=== PATIENT | male | born 1985 | race Caucasian/White ===

== ENCOUNTER → 2023-07-04 | Day surgery (SDC) | payer BC ==
[~2023-07-04] MED LIST: LIDOCAINE 1% (10MG/ML) FOR IV START INTRADERMA PRN; LIDOCAINE 2% (PF) 20 MG/ML 5 ML VIAL ONE; PROPOFOL 10 MG/ML 20 ML VIAL IV ONE; fentaNYL (PF) 50 MCG/ML 2 ML AMP ONE
--- NOTE | 2023-07-04 07:36 | P.GSHP ---
History of Present Illness H&P Date: 07/04/23 CHIEF COMPLAINT: GERD and colon screen HISTORY OF PRESENT ILLNESS: The patient is a 38-year-old male who presents with gastroesophageal reflux disease and need for colon screen. Upper and lower endoscopy were offered for further evaluation and management. PAST MEDICAL HISTORY: Please see list. PAST SURGICAL HISTORY: Please see list. MEDICATIONS: Please see list. ALLERGIES: Please see list. SOCIAL HISTORY: No illicit drug use FAMILY HISTORY: No reports of Crohn disease or ulcerative colitis. REVIEW OF ORGAN SYSTEMS: CONSTITUTIONAL: No reports of fevers or chills. GI: Denies any blood in stools or constipation. PHYSICAL EXAM: VITAL SIGNS: Stable GENERAL: Well-developed pleasant in no acute distress. HEENT: No scleral icterus. Extraocular movements grossly intact. Moist buccal mucosa. NECK: Supple without lymphadenopathy. CHEST: Unlabored respirations. Equal bilateral excursions. CARDIOVASCULAR: Regular rate and rhythm. Distal 2+ pulses. ABDOMEN: Soft, nondistended. MUSCULOSKELETAL: No clubbing, cyanosis, or edema. ASSESSMENT: 1. Gastroesophageal reflux disease 2. Colon screen. PLAN: 1. Recommend proceeding with an upper and lower endoscopy Past Medical History Past Medical History: GERD/Reflux, Hypertension Additional Past Medical History / Comment(s): ulceratative colitis History of Any Multi-Drug Resistant Organisms: None Reported Past Surgical History: Cholecystectomy Additional Past Surgical History / Comment(s): EGD/colonoscopy Past Anesthesia/Blood Transfusion Reactions: No Reported Reaction Smoking Status: Former smoker - Past Family History Brother(s) Family Medical History: Diabetes Mellitus Medications and Allergies Home Medications Medication Instructions Recorded Confirmed Type ALPRAZolam [Xanax] 0.5 mg PO BID PRN 07/02/23 07/02/23 History Bisoprolol-Hctz 5-6.25 mg [Ziac 1 tab PO QAM 07/02/23 07/02/23 History 5-6.25 MG] traMADol HCL 1 tab PO Q6H PRN 07/02/23 07/02/23 History Allergies Allergy/AdvReac Type Severity Reaction Status Date / Time shellfish derived Allergy Anaphylaxis Verified 07/02/23 09:32 venom-honey bee Allergy Rash/Hives Verified 07/02/23 09:32 [bee venom (honey bee)]
[2023-07-04] MEDS: LACTATED RINGERS 1,000 ML IV SCH (09:19)
[2023-07-04 09:28] VITALS: TEMP 98.9
--- NOTE | 2023-07-04 10:23 | P.PCN ---
Date of Procedure: 07/04/23 Description of Procedure: PREOPERATIVE DIAGNOSIS: Ulcerative colitis Gastrointestinal bleeding POSTOPERATIVE DIAGNOSIS: Proctitis Ulcerative colitis OPERATION: Colonoscopy to the ileocecal valve and appendiceal orifice, cecum Colonoscopy with cold forceps biopsy SURGEON: Jing Hopson MD. ANESTHESIA: MAC. INDICATIONS: The patient is an 38-year-old male who with gastrointestinal bleeding and history of ulcerative colitis. Reports recent bleeding. Benefits and risks were described and informed consent was obtained. DESCRIPTION OF PROCEDURE: The patient had undergone a GoLYTELY prep. The patient had been brought into the operating room and laid in the left lateral decubitus position. After adequate intravenous sedation, the rectum was examined with 2% lidocaine jelly. The prostate was unremarkable. No external hemorrhoids were encountered. The rectal tone was within normal limits. No lesions were palpated in the rectal vault. An Olympus colonoscope was advanced until the cecum, ileocecal valve and appendiceal orifice were clearly viewed. The prep was good. No sigmoid diver ticulosis was encountered. Colonic polyps were found and removed. Focal colitis was found involving the rectum. Retroflexion of the scope demonstrated grade 1 internal hemorrhoids without active bleeding or inflammation. The colon was desufflated. The patient had tolerated the procedure well. Withdrawal time was over 6 minutes. FINDINGS: Aronchick preparation quality scale 2 (1-5) Internal hemorrhoids, grade 1 No external hemorrhoids No arteriovenous malformations. No sigmoid diverticulosis Proctitis with biopsies obtained, cold forceps Random biopsies obtained for ulcerative colitis RECOMMENDATIONS: Repeat colonoscopy 2 years 2023 Plan - Discharge Summary Discharge Rx Participant: Yes New Discharge Prescriptions: New metroNIDAZOLE [Flagyl] 500 mg PO TID #30 tab Continue Bisoprolol-Hctz 5-6.25 mg [Ziac 5-6.25 MG] 1 tab PO QAM ALPRAZolam [Xanax] 0.5 mg PO BID PRN PRN Reason: Anxiety traMADol HCL 1 tab PO Q6H PRN PRN Reason: Pain Discharge Medication List ALPRAZolam [Xanax] 0.5 mg PO BID PRN 07/02/23 [History] Bisoprolol-Hctz 5-6.25 mg [Ziac 5-6.25 MG] 1 tab PO QAM 07/02/23 [History] traMADol HCL 1 tab PO Q6H PRN 07/02/23 [History] metroNIDAZOLE [Flagyl] 500 mg PO TID #30 tab 07/04/23 [Rx] Follow up Appointment(s)/Referral(s): Jing Hopson MD [STAFF PHYSICIAN] - 08/13/23 4:00 pm Patient Instructions/Handouts: Proctitis (DC), GERD (Gastroesophageal Reflux Disease) (ED) Activity/Diet/Wound Care/Special Instructions: Repeat colonoscopy 2 years, 2023 Discharge Disposition: HOME SELF-CARE
--- NOTE | 2023-07-04 10:25 | P.PCN ---
Date of Procedure: 07/04/23 Description of Procedure: PREOPERATIVE DIAGNOSIS: Gastrointestinal bleeding POSTOPERATIVE DIAGNOSIS: Gastroesophageal reflux disease. Gastritis. OPERATION: Esophagogastroduodenoscopy with biopsies along the esophagus in antrum and duodenum SURGEON: Jing Hopson MD ANESTHESIA: MAC. INDICATIONS: The patient is a 38-year-old male who presents with gastrointestinal bleed. Benefits and risks of the procedure were described. Informed consent was obtained. DESCRIPTION: The patient was brought into the endoscopy suite and laid in the left lateral decubitus position. An Olympus gastroscope was passed along the posterior oropharynx down to the distal esophagus where the squamocolumnar junction was encountered at 41 cm from the incisors. The stomach was entered and no bile reflux was found. Additional findings are listed below. Biopsies with cold forceps were obtained of the antrum. The first through third portion of the duodenum was examined. Retroflexion of the scope confirmed Hill grade 1 lower esophageal valve. The squamocolumnar junction demonstrated LA grade B erosive esophagitis. The stomach was desufflated. The patient tolerated the procedure well. FINDINGS: Squamocolumnar junction 41cm from the incisors. Diaphragmatic hiatus at 41 cm. Hill grade 1 lower esophageal valve. LA grade B erosive esophagitis. Biopsies obtained Biopsies obtained of the duodenum. Chronic gastritis with biopsies obtained. RECOMMENDATIONS: Upper endoscopy as needed.
[2023-07-04 10:31] VITALS: PULSE 72; RESP 18
[2023-07-04 11:01] VITALS: BP 124/77
== END | disposition home or self-care (01) ==
LOC: ORWHC2ENDO 08:54
PROVIDERS: ATTEND Surgery Plastic and Reconstructive Surgery
DX: K29.50 Unspecified chronic gastritis without bleeding (principal); K21.00 Gastro-esophageal reflux disease with esophagitis, without bleeding; I10 Essential (primary) hypertension; K62.89 Other specified diseases of anus and rectum; F41.9 Anxiety disorder, unspecified; Z87.891 Personal history of nicotine dependence; Z90.49 Acquired absence of other specified parts of digestive tract; Z91.030 Bee allergy status; Z88.2 Allergy status to sulfonamides; Z79.899 Other long term (current) drug therapy
CPT/HCPCS: 88305; 45380; 43239; J3010; J2704; J2001

== ENCOUNTER 2024-03-31 08:26 | Inpatient (IN) | payer BC ==
--- NOTE | 2024-03-31 08:49 | ED ---
General Adult HPI - General Chief complaint: GI Bleed Stated complaint: blood in stool/dehydrated Time Seen by Provider: 03/31/24 08:35 Source: patient, family, RN notes reviewed Mode of arrival: ambulatory Limitations: no limitations - History of Present Illness Initial comments: Patient is a 39-year-old male presenting to the emergency department with concerns with dehydration. Patient has history of ulcerative colitis. Patient has been having increased symptoms for months, especially worse the past week. Patient started Flagyl however does not feel this is helping and may be making things worse. Patient has decreased oral intake secondary to no appetite. Also decrease fluid intake. Patient is having diarrhea up to 15 times a day, someti mes with blood. Patient has some abdominal discomfort. Patient feels generally weak and dehydrated. No vomiting. Patient has had weight loss. - Related Data Home Medications Medication Instructions Recorded Confirmed ALPRAZolam [Xanax] 0.5 mg PO BID 07/02/23 03/31/24 Bisoprolol-Hctz 5-6.25 mg [Ziac 1 tab PO DAILY 07/02/23 03/31/24 5-6.25 MG] Sertraline [Zoloft] 50 mg PO DAILY 03/31/24 03/31/24 Previous Rx's Medication Instructions Recorded metroNIDAZOLE [Flagyl] 500 mg PO TID #30 tab 07/04/23 Allergies Allergy/AdvReac Type Severity Reaction Status Date / Time shellfish derived Allergy Anaphylaxis Verified 03/31/24 09:52 venom-honey bee Allergy Rash/Hives Verified 03/31/24 09:52 [bee venom (honey bee)] Review of Systems ROS Statement: Those systems with pertinent positive or pertinent negative responses have been documented in the HPI. ROS Other: All systems not noted in ROS Statement are negative. Constitutional: Denies: fever Eyes: Denies: eye pain ENT: Denies: ear pain Respiratory: Denies: cough, dyspnea Cardiovascular: Denies: chest pain Endocrine: Reports: fatigue Gastrointestinal: Reports: as per HPI, diarrhea, hematochezia Musculoskeletal: Denies: back pain Skin: Denies: rash Neurological: Denies: headache Past Medical History Past Medical History: GERD/Reflux, GI Bleed, Hypertension Additional Past Medical History / Comment(s): proctitis, ulceratative colitis History of Any Multi-Drug Resistant Organisms: None Reported Past Surgical History: Cholecystectomy Additional Past Surgical History / Comment(s): EGD/colonoscopy Past Anesthesia/Blood Transfusion Reactions: No Reported Reaction Past Psychological History: Anxiety Smoking Status: Former smoker Past Alcohol Use History: None Reported Past Drug Use History: None Reported - Past Family History Brother(s) Family Medical History: Diabetes Mellitus General Exam Limitations: no limitations General appearance: alert, in no apparent distress Head exam: Present: normocephalic Eye exam: Present: normal appearance Neck exam: Present: normal inspection Respiratory exam: Present: normal lung sounds bilaterally Cardiovascular Exam: Present: regular rate, normal rhythm GI/Abdominal exam: Present: soft. Absent: tenderness Extremities exam: Present: normal inspection Neurological exam: Present: alert Psychiatric exam: Present: normal affect, normal mood Skin exam: Present: normal color Course Vital Signs 03/31/24 03/31/24 08:28 08:43 Temperature 97.4 F L 98.2 F Pulse Rate 68 58 L Respiratory 18 22 Rate Blood Pressure 126/90 134/88 O2 Sat by Pulse 96 97 Oximetry Medical Decision Making - Medical Decision Making Was pt. sent in by a medical professional or institution (, PA, DIRECTOR MONEY, urgent care, hospital, or fpc...) When possible be specific @ -No Did you speak to anyone other than the patient for history (EMS, parent, family, police, friend...)? What history was obtained from this source @ -Family is present and helps provide additional history including antibiotic use and onset Did you review nursing and triage notes (agree or disagree)? Why? @ -I reviewed and agree with nursing and triage notes Were old charts reviewed (outside hosp., previous admission, EMS record, old EKG, old radiological studies, urgent care reports/EKG's, fpc records)? Report findings @ -No old charts were reviewed Differential Diagnosis (chest pain, altered mental status, abdominal pain women, abdominal pain men, vaginal bleeding, weakness, fever, dyspnea, syncope, headache, dizziness, GI bleed, back pain, seizure, CVA, palpatations, mental health, musculoskeletal)? @ -Differential Abdominal Pain Men: Appendicitis, cholecystitis, diverticulosis, ischemic bowel, pancreatitis, hepatitis, UTI, gastroenteritis, AAA, incarcerated hernia, bowel obstruction, constipation, inflammatory bowel, hepatitis, peptic ulcer disease, splenic infarction, perforated viscus, testicular torsion, this is not meant to be an all-inclusive list EKG interpreted by me (3pts min.). @ -As above X-rays interpreted by me (1pt min.). @ -None done CT interpreted by me (1pt min.). @ -None done U/S interpreted by me (1pt. min.). @ -None done What testing was considered but not performed or refused? (CT, X-rays, U/S, labs)? Why? @ -Considered Hemoccult however patient has known blood and known history of similar What meds were considered but not given or refused? Why? @ -None Did you discuss the management of the patient with other professionals (professionals i.e. DrGuicho, PA, DIRECTOR MONEY, lab, RT, psych nurse, social services designee, nuclear reactor technician, teacher, court security officer, community case manager)? Give summary @ -Case discussed with Dr. Wharton who will admit his patient Was smoking cessation discussed for >3mins.? @ -No Was critical care preformed (if so, how long)? @ -No Were there social determinants of health that impacted care today? How? (Homelessness, low income, unemployed, alcoholism, drug addiction, transportat ion, low edu. Level, literacy, decrease access to med. care, custodial, rehab)? @ -No Was there de-escalation of care discussed even if they declined (Discuss DNR or withdrawal of care, Hospice)? DNR status @ -No What co-morbidities impacted this encounter? (DM, HTN, Smoking, COPD, CAD, Cancer, CVA, ARF, Chemo, Hep., AIDS, mental health diagnosis, sleep apnea, morbid obesity)? @ -History of ulcerative colitis Was patient admitted / discharged? Hospital course, mention meds given and route, prescriptions, significant lab abnormalities, going to OR and other pertinent info. @ -Patient presents with colitis with history of similar. Symptoms have been occurring for months, worse the past week. Patient has weight loss and decreased oral intake. Labs unremarkable. Patient will be admitted. Patient reevaluated and updated. Consults will be placed. Admission orders written. Dr. Wharton would like IV steroids to be started. Undiagnosed new problem with uncertain prognosis? @ -No Drug Therapy requiring intensive monitoring for toxicity (Heparin, Nitro, Insulin, Cardizem)? @ -No Were any procedures done? @ -No Diagnosis/symptom? @ -Colitis Acute, or Chronic, or Acute on Chronic? @ -Acute Uncomplicated (without systemic symptoms) or Complicated (systemic symptoms)? @ -Complicated with some gastrointestinal bleeding Side effects of treatment? @ -No Exacerbation, Progression, or Severe Exacerbation? @ -No Poses a threat to life or bodily function? How? (Chest pain, USA, OR, pneumonia, PE, COPD, DKA, ARF, appy, cholecystitis, CVA, Diverticulitis, Homicidal, Suicidal, threat to staff... and all critical care pts) @ -Threat to hematological and bowel function - Lab Data Result diagrams: 03/31/24 08:58 03/31/24 08:58 Lab Results 03/31/24 03/31/24 03/31/24 Range/Units 08:58 08:58 08:58 WBC 9.8 (3.8-10.6) k/uL RBC 4.59 (4.30-5.90) m/uL Hgb 13.7 (13.0-17.5) gm/dL Hct 41.2 (39.0-53.0) % MCV 89.8 (80.0-100.0) fL MCH 30.0 (25.0-35.0) pg MCHC 33.3 (31.0-37.0) g/dL RDW 13.1 (11.5-15.5) % Plt Count 243 (150-450) k/uL MPV 7.3 Neutrophils % 79 % Lymphocytes % 10 % Monocytes % 6 % Eosinophils % 4 % Basophils % 0 % Neutrophils # 7.7 (1.3-7.7) k/uL Lymphocytes # 1.0 (1.0-4.8) k/uL Monocytes # 0.6 (0-1.0) k/uL Eosinophils # 0.4 (0-0.7) k/uL Basophils # 0.0 (0-0.2) k/uL PT 12.0 (10.0-12.5) sec INR 1.1 (<1.2) APTT 27.9 (22.0-30.0) sec Sodium 137 (137-145) mmol/L Potassium 3.8 (3.5-5.1) mmol/L Chloride 105 (98-107) mmol/L Carbon Dioxide 28 (22-30) mmol/L Anion Gap 4 mmol/L BUN 8 L (9-20) mg/dL Creatinine 0.74 (0.66-1.25) mg/dL Est GFR (CKD-EPI)AfAm >90 (>60 ml/min/1.73 sqM) Est GFR (CKD-EPI)NonAf >90 (>60 ml/min/1.73 sqM) Glucose 95 (74-99) mg/dL Calcium 8.7 (8.4-10.2) mg/dL Total Bilirubin 0.6 (0.2-1.3) mg/dL AST 35 (17-59) U/L ALT 41 (4-49) U/L Alkaline Phosphatase 90 (38-126) U/L Total Protein 6.6 (6.3-8.2) g/dL Albumin 3.6 (3.5-5.0) g/dL Amylase 39 (30-110) U/L Lipase 49 (23-300) U/L Disposition Clinical Impression: Colitis Disposition: ADMITTED IP TO THIS [facility] Condition: Serious Is patient prescribed a controlled substance at d/c from ED?: No Referrals: Michele Wharton MD [Primary Care Provider] - 1-2 days Time of Disposition: 09:58
[2024-03-31] MEDS: ONDANSETRON 4 MG/2 ML VIAL IVP STA (09:09)
[2024-03-31] MEDS: SODIUM CHLORIDE 0.9% 1,000 ML IV STA (09:10)
[2024-03-31] MEDS: DICYCLOMINE 10 MG/ML 2 ML AMP IM STA (09:18)
[2024-03-31 09:21] LABS: Basophils % (A) 0 %; Eosinophils # (A) 0.4 k/uL (0-0.7); Eosinophils % (A) 4 %; HCT 41.2 % (39.0-53.0); HGB 13.7 gm/dL (13.0-17.5); Lymphocytes % (A) 10 %; MCHC 33.3 g/dL (31.0-37.0); MCV 89.8 fL (80.0-100.0); Mean Platelet Volume 7.3; Monocytes # (A) 0.6 k/uL (0-1.0); Monocytes % (A) 6 %; Neutrophils # (A) 7.7 k/uL (1.3-7.7); Neutrophils % (A) 79 %; Platelet Count 243 k/uL (150-450); RBC 4.59 m/uL (4.30-5.90); RDW 13.1 % (11.5-15.5); WBC 9.8 k/uL (3.8-10.6)
[2024-03-31] MEDS: PANTOPRAZOLE 40 MG/10 ML VIAL IVP STA (09:23)
[2024-03-31 09:32] LABS: INR 1.1 (<1.2); Partial Thromboplastin Time 27.9 sec (22.0-30.0)
[2024-03-31 09:38] LABS: ALT 41 U/L (4-49); AST 35 U/L (17-59); African American GFR (CKD) >90 (>60 ml/min/1.73 sqM); Albumin 3.6 g/dL (3.5-5.0); Alkaline Phosphatase 90 U/L (38-126); Amylase 39 U/L (30-110); Anion Gap 4 mmol/L; Blood Urea Nitrogen 8 mg/dL (9-20); Calcium 8.7 mg/dL (8.4-10.2); Carbon Dioxide 28 mmol/L (22-30); Chloride 105 mmol/L (98-107); Glucose 95 mg/dL (74-99); Lipase 49 U/L (23-300); Non-African American GFR(CKD) >90 (>60 ml/min/1.73 sqM); Potassium 3.8 mmol/L (3.5-5.1); Sodium 137 mmol/L (137-145); Total Bilirubin 0.6 mg/dL (0.2-1.3); Total Protein 6.6 g/dL (6.3-8.2)
[2024-03-31] MEDS ORDERED: ONDANSETRON 4 MG/2 ML VIAL IVP PRN (09:58)
[2024-03-31] MEDS ORDERED: NALOXONE 0.4 MG/ML 1 ML VIAL IV PRN (09:58)
[2024-03-31] MEDS ORDERED: HYDROmorphone 2 MG/ML 1 ML SYRINGE IVP PRN (09:58)
[2024-03-31] MEDS ORDERED: traMADol 50 MG TAB PO PRN (09:58)
[2024-03-31] MEDS ORDERED: ACETAMINOPHEN TAB 325 MG TAB PO PRN (09:58)
[2024-03-31] MEDS: methylPREDNISolone SOD SUCCI 125 MG/2 ML VIAL IV SCH (11:36)
[2024-03-31] MEDS: SODIUM CHLORIDE 0.9% 1,000 ML IV SCH (11:36)
[2024-03-31] MEDS: HYDROmorphone 0.5 MG/0.5 ML SYRINGE IVP PRN (11:44)
--- NOTE | 2024-03-31 15:37 | P.CONS ---
History of Present Illness - Reason for Consult Consult date: 03/31/24 Colitis Requesting physician: Louis Etienne - Chief Complaint Diarrhea, dehydration - History of Present Illness This is a pleasant 39-year-old male with a history of ulcerative colitis who has followed in the past with gastroenterology but has not been seen there since 2018 2019. At that time patient had been on Lialda and Asocol however he had stopped taking those medications and stated they did not work for him and has not been seen by GI since. His last colonoscopy done with Dr. Hopson in 07/04/2023 for GI bleed. At that time he had a EGD and colonoscopy. EGD with reported findings of gastroesophageal reflux disease and gastritis. Biopsies for chronic esophagitis. And colonoscopy with findings of proctitis and biopsy showed chronic active colitis in the sigmoid colon. He states he recently has seen Dr. Hopson and she put him on Flagyl which has made his diarrhea and abdominal pain worse. States he is so dehydrated from multiple loose bowel movements. Reports that he has had bloody bowel movements for the last 1 year duration. Lost 30 pounds in the last 6 months duration. His average bowel movements are 7 a day with 2-3 bloody ones in the morning. No nausea or vomiting. Labs are unremarkable. No imaging ordered. Review of Systems REVIEW OF SYSTEMS: CARDIOPULMONARY: No chest pain or shortness of breath. Gastrointestinal: Abdominal pain. No nausea or vomiting. No hematemesis, coffee-ground emesis. Diarrhea, frequent, with bright red blood. GENITOURINARY: No dysuria or hematuria. MUSCULOSKELETAL: Reports normal range of motion. SKIN: No rashes. No jaundice. ENDOCRINE: No chills, fevers. No excessive weight gain or loss. No polydipsia or polyuria. PSYCHIATRIC: Unremarkable. NEUROLOGY: No change in mental status. Denies dizziness, headache. ENT: Vision unremarkable. CONSTITUTIONAL: No recent weight loss. No fever, chills, night sweats. Past Medical History Past Medical History: GERD/Reflux, GI Bleed, Hypertension Additional Past Medical History / Comment(s): proctitis, ulceratative colitis History of Any Multi-Drug Resistant Organisms: None Reported Past Surgical History: Cholecystectomy Additional Past Surgical History / Comment(s): EGD/colonoscopy Past Anesthesia/Blood Transfusion Reactions: No Reported Reaction Past Psychological History: Anxiety Smoking Status: Former smoker Past Alcohol Use History: None Reported Additional Past Alcohol Use History / Comment(s): quit smoking 2021, smoked 8 cig/day Past Drug Use History: None Reported - Past Family History Brother(s) Family Medical History: Diabetes Mellitus Medications and Allergies Home Medications Medication Instructions Recorded Confirmed Type ALPRAZolam [Xanax] 0.5 mg PO BID 07/02/23 03/31/24 History Bisoprolol-Hctz 5-6.25 mg [Ziac 1 tab PO DAILY 07/02/23 03/31/24 History 5-6.25 MG] metroNIDAZOLE [Flagyl] 500 mg PO TID #30 tab 07/04/23 03/31/24 Rx Sertraline [Zoloft] 50 mg PO DAILY 03/31/24 03/31/24 History Allergies Allergy/AdvReac Type Severity Reaction Status Date / Time shellfish derived Allergy Anaphylaxis Verified 03/31/24 09:52 venom-honey bee Allergy Rash/Hives Verified 03/31/24 09:52 [bee venom (honey bee)] Physical Exam Vitals: Vital Signs Temp Pulse Pulse Resp BP BP Pulse Ox 03/31/24 13:57 97.7 F 60 17 109/65 95 03/31/24 12:28 97.9 F 52 L 16 132/76 96 03/31/24 11:39 99.1 F 55 L 20 118/67 98 03/31/24 08:43 98.2 F 58 L 22 134/88 97 03/31/24 08:28 97.4 F L 68 18 126/90 96 Intake and Output 03/30/24 03/31/24 03/31/24 22:59 06:59 14:59 Intake Total 240 Balance 240 Intake: Oral 240 Other: Weight 64.41 kg General appearance: The patient is alert, oriented, appears in no acute distress. HET: Head is normocephalic and atraumatic. Conjunctiva pink. Sclera anicteric. Neck: Supple without lymphadenopathy. Trachea midline. Heart: Regular. Lungs: Equal expansion, normal respiratory effort. Abdomen: Soft, lower abdominal tenderness, nondistended. Skin: No rashes. No jaundice. Extremities: Normal skin color and turgor. No pedal edema. Neurological: No focal deficits. Alert and oriented x3. Results CBC & Chem 7: 03/31/24 08:58 03/31/24 08:58 Labs: Abnormal Lab Results - Last 24 Hours (Table) 03/31/24 Range/Units 08:58 BUN 8 L (9-20) mg/dL Assessment and Plan (1) Ulcerative colitis Narrative/Plan: 39-year-old male with history of ulcerative colitis who has not followed with gastroenterology and has not been on any maintenance medications in at least 4 to 5 years. Last colonoscopy with reported findings of proctitis and ulcerative colitis with sigmoid colon biopsy reporting chronic active colitis. Recently seen by general surgery and started on Flagyl which made the diarrhea worse. Likely patient has a flare of ulcerative colitis. Will obtain stool sample for C. difficile, get CRP and sed rate. Do not recommend antibiotics at this time. Continue with steroids. Likely will add mesalamine in the next 1 to 2 days. No plans on colonoscopy at this time as patient had in June of this year. Current Visit: No Status: Acute Code(s): K51.90 - ULCERATIVE COLITIS, UNSPECIFIED, WITHOUT COMPLICATIONS SNOMED Code(s): 69975433 (2) Diarrhea Current Visit: Yes Status: Acute Code(s): R19.7 - DIARRHEA, UNSPECIFIED SNOMED Code(s): 32184379 Plan: 1. Continue symptomatic and supportive care 2. Clear liquid diet 3. Decrease Solu-Medrol to 20 mg IV every 8 hours 4. Pain medication as needed 5. C. difficile, CRP and sed rate ordered 6. No plans on endoscopic evaluation at this time 7. Recommend outpatient follow-up with gastroenterology for ulcerative colitis Thank you for this consultation, we will continue to follow. Dr. Laureen Ford I agree with the dictator's note, documented as a scribe by Letty Ray.
[2024-03-31] MEDS: ALPRAZolam 0.5 MG TAB PO SCH (20:50)
[2024-04-01] MEDS: SERTRALINE 50 MG TAB PO SCH (08:10)
[2024-04-01] MEDS: PANTOPRAZOLE 40 MG/10 ML VIAL IV SCH (08:10)
[2024-04-01] MEDS: BISOPROLOL-HCTZ 5-6.25 MG 1 EACH TAB PO SCH (08:11)
--- NOTE | 2024-04-01 08:28 | P.HPIM ---
History of Present Illness H&P Date: 04/01/24 Chief Complaint: Rectal bleeding colitis This is a history and physical a 39-year-old white male with known history of colitis in the past. Usually is controlled by oral steroids and antibiotics but failed outpatient treatment.. He is here for appropriate evaluation. Minimal pain is noted. Incessant diarrhea with bleeding was noted History of hyperlipidemia Review of Systems Constitutional: Denies chills, Denies fever Eyes: denies blurred vision, denies pain Ears, nose, mouth and throat: Denies headache, Denies sore throat Cardiovascular: Denies chest pain, Denies shortness of breath Gastrointestinal: Reports as per HPI, Reports abdominal pain Musculoskeletal: Denies myalgias Past Medical History Past Medical History: GERD/Reflux, GI Bleed, Hypertension Additional Past Medical History / Comment(s): proctitis, ulceratative colitis History of Any Multi-Drug Resistant Organisms: None Reported Past Surgical History: Cholecystectomy Additional Past Surgical History / Comment(s): EGD/colonoscopy Past Anesthesia/Blood Transfusion Reactions: No Reported Reaction Past Psychological History: Anxiety Smoking Status: Former smoker Past Alcohol Use History: None Reported Additional Past Alcohol Use History / Comment(s): quit smoking 2021, smoked 8 cig/day Past Drug Use History: None Reported - Past Family History Brother(s) Family Medical History: Diabetes Mellitus Medications and Allergies Home Medications Medication Instructions Recorded Confirmed Type ALPRAZolam [Xanax] 0.5 mg PO BID 07/02/23 03/31/24 History Bisoprolol-Hctz 5-6.25 mg [Ziac 1 tab PO DAILY 07/02/23 03/31/24 History 5-6.25 MG] metroNIDAZOLE [Flagyl] 500 mg PO TID #30 tab 07/04/23 03/31/24 Rx Sertraline [Zoloft] 50 mg PO DAILY 03/31/24 03/31/24 History Allergies Allergy/AdvReac Type Severity Reaction Status Date / Time shellfish derived Allergy Anaphylaxis Verified 03/31/24 09:52 venom-honey bee Allergy Rash/Hives Verified 03/31/24 09:52 [bee venom (honey bee)] Physical Exam Vitals: Vital Signs Temp Pulse Pulse Resp BP BP Pulse Ox 04/01/24 06:57 97.8 F 59 L 16 120/69 98 04/01/24 00:54 97.7 F 56 L 16 111/58 96 03/31/24 19:08 97.7 F 57 L 17 103/58 96 03/31/24 18:31 97.9 F 68 16 105/56 03/31/24 13:57 97.7 F 60 17 109/65 95 03/31/24 12:28 97.9 F 52 L 16 132/76 96 03/31/24 11:39 99.1 F 55 L 20 118/67 98 03/31/24 08:43 98.2 F 58 L 22 134/88 97 03/31/24 08:28 97.4 F L 68 18 126/90 96 Intake and Output 03/31/24 04/01/24 04/01/24 22:59 06:59 14:59 Intake Total 1302 Balance 1302 Intake: Oral 1302 Other: # Voids 5 1 # Bowel Movements 2 # Emeses 1 - Constitutional General appearance: cooperative, no acute distress - Neck Neck: lymphadenopathy - Respiratory Respiratory: bilateral: CTA - Cardiovascular Rhythm: regular Heart sounds: normal: S1, S2 Abnormal Heart Sounds: no S3 Gallop - Gastrointestinal General gastrointestinal: scaphoid, soft, tenderness - Neurologic Neurologic: CNII-XII intact - Musculoskeletal Musculoskeletal: gait normal Results CBC & Chem 7: 03/31/24 08:58 03/31/24 08:58 Labs: Abnormal Lab Results - Last 24 Hours (Table) 03/31/24 03/31/24 03/31/24 Range/Units 08:58 08:58 08:58 ESR 41 H (0-15) mm/Hr BUN 8 L (9-20) mg/dL C-Reactive Protein 1.10 H (0.00-0.80) mg/dL Thrombosis Risk Factor Assmnt - Choose All That Apply Any of the Below Risk Factors Present?: Yes Each Factor Represents 1 point: Age 41-60 years Other Risk Factors: No Other congenital or acquired thrombophilia - If yes, enter type in comment: No Thrombosis Risk Factor Assessment Total Risk Factor Score: 1 Thrombosis Risk Factor Assessment Level: Low Risk Assessment and Plan (1) Hypertension Current Visit: Yes Status: Acute Code(s): I10 - ESSENTIAL (PRIMARY) HYPERTENSION SNOMED Code(s): 41584178 (2) Diarrhea Current Visit: Yes Status: Acute Code(s): R19.7 - DIARRHEA, UNSPECIFIED SNOMED Code(s): 04778751 (3) Ulcerative colitis Current Visit: No Status: Acute Code(s): K51.90 - ULCERATIVE COLITIS, UNSPECIFIED, WITHOUT COMPLICATIONS SNOMED Code(s): 73201515 Plan: Continue current regimen of treatment with antibiotics and steroids. Defer general treatment to GI/surgery. Will continue to follow.
[2024-04-01 08:33] LABS: Basophils # (A) 0.03 X 10*3/uL (0.00-0.10); Basophils % (A) 0.4 %; Eosinophils # (A) 0.04 X 10*3/uL (0.04-0.35); Eosinophils % (A) 0.5 %; HCT 37.5 % (39.6-50.0); HGB 12.3 g/dL (13.0-17.0); Lymphocytes # (A) 1.32 X 10*3/uL (0.90-5.00); Lymphocytes % (A) 16.6 %; MCH 29.9 pg (27.0-32.0); MCHC 32.8 g/dL (32.0-37.0); MCV 91.2 FL (80.0-97.0); Monocytes # (A) 1.41 X 10*3/uL (0.20-1.00); Monocytes % (A) 17.8 %; NRBC Per 100 WBC 0 X 10*3/uL (0.00-0.01); Neutrophils # (A) 5.11 X 10*3/uL (1.80-7.70); Neutrophils % (A) 64.3 %; Platelet Count 222 X 10*3/uL (140-440); RBC 4.11 X 10*6/uL (4.40-5.60); RDW 12.9 % (11.5-14.5); WBC 7.94 X 10*3/uL (4.50-10.00)
[2024-04-01 08:44] LABS: Blood Urea Nitrogen 8.4 mg/dL (9.0-27.0); Calcium 8.3 mg/dL (8.7-10.3); Carbon Dioxide 23.4 mmol/L (21.6-31.8); Chloride 108 mmol/L (96-109); Glucose 107 mg/dL (70-110); Potassium 4.3 mmol/L (3.5-5.5); Sodium 140 mmol/L (135-145)
[2024-04-01] MEDS: methylPREDNISolone SOD SUCCI 40 MG/ML 1 ML VIAL IV SCH (10:14)
--- NOTE | 2024-04-01 13:05 | P.GSCN ---
History of Present Illness Consult date: 04/01/24 History of present illness: CHIEF COMPLAINT: Abdominal pain HISTORY OF PRESENT ILLNESS: This is a 39-year-old male with a history of ulcerative colitis. Patient reports that he has had blood in his stools over the last year. He reports that he was started on an antibiotic Flagyl and had increased bowel movements with increased bleeding. Patient's last colonoscopy was in July 2023 reporting ulcerative colitis and proctitis. Patient currently denies any abdominal pain. He reports that he had 7 stools yesterday with blood and today he has had 4 stools with blood. He has a cramping sensation prior to the bowel movements. He has been seen by GI service and has been started on IV steroids. Stool for C. difficile was negative. He denies any fever chills or sweats. Patient reports he is currently not taking any medications for his ulcerative colitis. He has taken ulcerative colitis medications in the past. PAST MEDICAL HISTORY: See list. PAST SURGICAL HISTORY: See list. MEDICATIONS: See list. ALLERGIES: See list. SOCIAL HISTORY: No illicit drug use. REVIEW OF SYSTEMS: CONSTITUTIONAL: Denies fever or chills. HEENT: Denies blurred vision, vision changes, or eye pain. Denies hemoptysis ENDOCRINE: Denies heat or cold intolerance. CARDIOVASCULAR: Denies chest pain or pressure. RESPIRATORY: No shortness of breath. GASTROINTESTINAL: Denies abdominal pain. Denies nausea or vomiting. NEURO: Denies history of seizures. PSYCH: No depression or suicidal ideation HEMATOLOGIC: Denies bleeding disorders. LYMPHATIC: The patient denies any lumps and bumps around the neck. GENITOURINARY: Denies any blood in urine or increased urinary frequency. MUSCULOSKELETAL: Denies myalgias. Denies joint swelling. Denies decreased range of motion beyond patients baseline. SKIN: Denies pruitis. Denies rash. PHYSICAL EXAM: VITAL SIGNS: Reviewed GENERAL: Well-developed in no acute distress. HEENT: No sclera icterus. Extraocular movements grossly intact. Moist buccal mucosa. Head is atraumatic, normocephalic. Hears conversational speech. No nasal drainage. NECK: Supple without lymphadenopathy. CHEST: Non-labored respirations and equal bilateral excursions. CARDIOVASCULAR: Palpable 2+ radial pulses. ABDOMEN: Soft. Nondistended. Nontender MUSCULOSKELETAL: No clubbing or cyanosis. NEUROLOGIC: No focal or lateralizing signs. Cranial nerves II through XII grossly intact. PSYCH: Appropriate affect. Alert and oriented to person, place and time. SKIN: Well perfused. Good skin turgor. LABORATORY DATA: WBC 7.94 Hgb 13.7-12.3 platelets 222 Sodium is 140 potassium is 4.3 creatinine 0.7 Stool for C. difficile negative IMAGING: ASSESSMENT: 1. Ulcerative colitis exacerbation 2. GI bleed due to ulcerative colitis PLAN: -No surgical intervention planned at this time -Continue IV steroids per GI service -GI services added a low-fat diet -Continue supportive care -Continue to monitor Thank you for this consultation Physician Filtration Supervisor note has been reviewed by physician. Signing provider agrees with the documented findings, assessment, and plan of care. Past Medical History Past Medical History: GERD/Reflux, GI Bleed, Hypertension Additional Past Medical History / Comment(s): proctitis, ulceratative colitis History of Any Multi-Drug Resistant Organisms: None Reported Past Surgical History: Cholecystectomy Additional Past Surgical History / Comment(s): EGD/colonoscopy Past Anesthesia/Blood Transfusion Reactions: No Reported Reaction Past Psychological History: Anxiety Smoking Status: Former smoker Past Alcohol Use History: None Reported Additional Past Alcohol Use History / Comment(s): quit smoking 2021, smoked 8 cig/day Past Drug Use History: None Reported - Past Family History Brother(s) Family Medical History: Diabetes Mellitus Medications and Allergies Home Medications Medication Instructions Recorded Confirmed Type ALPRAZolam [Xanax] 0.5 mg PO BID 07/02/23 03/31/24 History Bisoprolol-Hctz 5-6.25 mg [Ziac 1 tab PO DAILY 07/02/23 03/31/24 History 5-6.25 MG] metroNIDAZOLE [Flagyl] 500 mg PO TID #30 tab 07/04/23 03/31/24 Rx Sertraline [Zoloft] 50 mg PO DAILY 03/31/24 03/31/24 History Allergies Allergy/AdvReac Type Severity Reaction Status Date / Time shellfish derived Allergy Anaphylaxis Verified 03/31/24 09:52 venom-honey bee Allergy Rash/Hives Verified 03/31/24 09:52 [bee venom (honey bee)] Surgical - Exam Vital Signs Temp Pulse Resp BP Pulse Ox 97.4 F L 68 18 126/90 96 03/31/24 08:28 03/31/24 08:28 03/31/24 08:28 03/31/24 08:28 03/31/24 08:28 Results - Labs 04/01/24 05:06 04/01/24 05:06 Abnormal Lab Results - Last 24 Hours (Table) 03/31/24 03/31/24 04/01/24 Range/Units 08:58 08:58 05:06 RBC 4.11 L (4.40-5.60) X 10*6/uL Hgb 12.3 L (13.0-17.0) g/dL Hct 37.5 L (39.6-50.0) % Monocytes # 1.41 H (0.20-1.00) X 10*3/uL ESR 41 H (0-15) mm/Hr BUN (9.0-27.0) mg/dL Calcium (8.7-10.3) mg/dL C-Reactive Protein 1.10 H (0.00-0.80) mg/dL 04/01/24 Range/Units 05:06 RBC (4.40-5.60) X 10*6/uL Hgb (13.0-17.0) g/dL Hct (39.6-50.0) % Monocytes # (0.20-1.00) X 10*3/uL ESR (0-15) mm/Hr BUN 8.4 L (9.0-27.0) mg/dL Calcium 8.3 L (8.7-10.3) mg/dL C-Reactive Protein (0.00-0.80) mg/dL Diabetes panel 04/01/24 Range/Units 05:06 Sodium 140 (135-145) mmol/L Potassium 4.3 (3.5-5.5) mmol/L Chloride 108 (96-109) mmol/L Carbon Dioxide 23.4 (21.6-31.8) mmol/L BUN 8.4 L (9.0-27.0) mg/dL Creatinine 0.7 (0.6-1.5) mg/dL Glucose 107 (70-110) mg/dL Calcium 8.3 L (8.7-10.3) mg/dL Calcium panel 04/01/24 Range/Units 05:06 Calcium 8.3 L (8.7-10.3) mg/dL Pituitary panel 04/01/24 Range/Units 05:06 Sodium 140 (135-145) mmol/L Potassium 4.3 (3.5-5.5) mmol/L Chloride 108 (96-109) mmol/L Carbon Dioxide 23.4 (21.6-31.8) mmol/L BUN 8.4 L (9.0-27.0) mg/dL Creatinine 0.7 (0.6-1.5) mg/dL Glucose 107 (70-110) mg/dL Calcium 8.3 L (8.7-10.3) mg/dL Adrenal panel 04/01/24 Range/Units 05:06 Sodium 140 (135-145) mmol/L Potassium 4.3 (3.5-5.5) mmol/L Chloride 108 (96-109) mmol/L Carbon Dioxide 23.4 (21.6-31.8) mmol/L BUN 8.4 L (9.0-27.0) mg/dL Creatinine 0.7 (0.6-1.5) mg/dL Glucose 107 (70-110) mg/dL Calcium 8.3 L (8.7-10.3) mg/dL
[2024-04-01] MEDS: IOPAMIDOL CONTRAST (ORAL USE) VIAL PO PRN (14:42)
--- NOTE | 2024-04-01 15:21 | P.PN ---
Subjective Progress Note Date: 04/01/24 Principal diagnosis: Ulcerative colitis This is a pleasant 39-year-old male with a history of ulcerative colitis who has followed in the past with gastroenterology but has not been seen there since 2018 2019. At that time patient had been on Lialda and Asocol however he had stopped taking those medications and stated they did not work for him and has not been seen by GI since. His last colonoscopy done with Dr. Hopson in 07/04/2023 for GI bleed. At that time he had a EGD and colonoscopy. EGD with reported findings of gastroesophageal reflux disease and gastritis. Biopsies for chronic esophagitis. And colonoscopy with findings of proctitis and biopsy showed chronic active colitis in the sigmoid colon. He states he recently has seen Dr. Hopson and she put him on Flagyl which has made his diarrhea and abdominal pain worse. States he is so dehydrated from multiple loose bowel movements. Reports that he has had bloody bowel movements for the last 1 year duration. Lost 30 pounds in the last 6 months duration. His average bowel movements are 7 a day with 2-3 bloody ones in the morning. No nausea or vomiting. Labs are unremarkable. No imaging ordered. notes 04/01/2024 Patient seen and examined today as a follow-up. States abdominal cramping still present but better. Still having diarrhea with some blood maybe a little bit less. States that he feels hungry. No nausea or vomiting. He is afebrile. CRP and sed rate both elevated. Sed rate 41 CRP 1.1. Stool C. difficile negative. Objective - Vital Signs Vital signs: Vital Signs Temp 97.8 F 04/01/24 06:57 Pulse 59 L 04/01/24 06:57 Resp 16 04/01/24 06:57 BP 120/69 04/01/24 06:57 Pulse Ox 98 04/01/24 06:57 FiO2 Intake & Output 03/31/24 04/01/24 04/01/24 18:59 06:59 18:59 Intake Total 1320 222 Balance 1320 222 Weight 64.41 kg Intake: Oral 1320 222 Other: # Voids 5 1 # Bowel Movements 2 # Emeses 1 - Exam General appearance: The patient is alert, oriented, appears in no acute distress. HET: Head is normocephalic and atraumatic. Conjunctiva pink. Sclera anicteric. Neck: Supple without lymphadenopathy. Abdomen: Soft, nontender, nondistended with bowel sounds. No guarding or rigidity. Extremities: Normal skin color and turgor. No pedal edema Skin: No rashes, no jaundice Neurological: No focal deficits. Alert and oriented. - Labs CBC & Chem 7: 04/01/24 05:06 04/01/24 05:06 Labs: Abnormal Lab Results - Last 24 Hours (Table) 03/31/24 03/31/24 04/01/24 Range/Units 08:58 08:58 05:06 RBC 4.11 L (4.40-5.60) X 10*6/uL Hgb 12.3 L (13.0-17.0) g/dL Hct 37.5 L (39.6-50.0) % Monocytes # 1.41 H (0.20-1.00) X 10*3/uL ESR 41 H (0-15) mm/Hr BUN (9.0-27.0) mg/dL Calcium (8.7-10.3) mg/dL C-Reactive Protein 1.10 H (0.00-0.80) mg/dL 04/01/24 Range/Units 05:06 RBC (4.40-5.60) X 10*6/uL Hgb (13.0-17.0) g/dL Hct (39.6-50.0) % Monocytes # (0.20-1.00) X 10*3/uL ESR (0-15) mm/Hr BUN 8.4 L (9.0-27.0) mg/dL Calcium 8.3 L (8.7-10.3) mg/dL C-Reactive Protein (0.00-0.80) mg/dL Assessment and Plan (1) Ulcerative colitis Narrative/Plan: 39-year-old male with history of ulcerative colitis who has not followed with gastroenterology and has not been on any maintenance medications in at least 4 to 5 years. Last colonoscopy with reported findings of proctitis and ulcerative colitis with sigmoid colon biopsy reporting chronic active colitis. Recently seen by general surgery and started on Flagyl which made the diarrhea worse. Likely patient has a flare of ulcerative colitis. Will obtain stool sample for C. difficile, get CRP and sed rate. Do not recommend antibiotics at this time. Continue with steroids. Likely will add mesalamine in the next 1 to 2 days. No plans on colonoscopy at this time as patient had in June of this year. Current Visit: No Status: Acute Code(s): K51.90 - ULCERATIVE COLITIS, UNSPECIFIED, WITHOUT COMPLICATIONS SNOMED Code(s): 68787621 (2) Diarrhea Current Visit: Yes Status: Acute Code(s): R19.7 - DIARRHEA, UNSPECIFIED SNOMED Code(s): 33643483 Plan: 1. Continue symptomatic and supportive care 2. Advance to low-fat low fiber diet 3. Solu-Medrol to 20 mg IV every 8 hours, likely will transition to prednisone 40 mg daily tomorrow 4. Pain medication as needed 5. Balsalazide started 6. No plans on endoscopic evaluation at this time 7. Recommend outpatient follow-up with gastroenterology for ulcerative colitis Thank you for this consultation, we will continue to follow. Dr. Laureen Ford I agree with the dictator's note, documented as a scribe by Letty Ray.
--- NOTE | 2024-04-01 16:28 | CT ---
EXAMINATION TYPE: CT abdomen pelvis w con DATE OF EXAM: 04/01/2024 4:17 PM COMPARISON: 04/15/2016 ultrasound CLINICAL INDICATION: Male, 39 years old with history of abdominal pain, GI bleed; abdominal pain, col itis and GI bleed TECHNIQUE: Axial CT abdomen pelvis w con;Sagittal and coronal reformats were created on a separate w orkstation. Contrast used:100 ml mL of Isovue 300 with IV Contrast, (none if empty) Oral contrast used: with Oral Contrast (none if empty) CT DLP: 468.70 mGycm, Automated exposure control for dose reduction was used. FINDINGS: LOWER CHEST: Unremarkable ABDOMEN LIVER: Unremarkable GALLBLADDER AND BILE DUCTS: Unremarkable. PANCREAS: Unremarkable. SPLEEN: Unremarkable. ADRENAL GLANDS: Unremarkable. KIDNEYS AND URETERS: No evidence of hydronephrosis or renal calculus. The ureters are unremarkable. PELVIS BLADDER: No evidence for wall thickening or mass given limitations of exam. REPRODUCTIVE: Unremarkable. ABDOMEN & PELVIS STOMACH AND BOWEL: No evidence of bowel obstruction. Short segment of large bowel wall thickening inv olving the hepatic flexure series 4 image 36. This extends a course of at least 10 cm in length. No e vidence for perforation or organizing fluid collection. PERITONEUM/RETROPERITONEUM: No evidence of pneumoperitoneum or free fluid. VASCULATURE: No evidence of aortic aneurysm. Retroaortic aortic left renal vein. MUSCULOSKELETAL: No acute osseous abnormalities LYMPH NODES: No gross evidence for lymphadenopathy. SOFT TISSUE/ABDOMINAL WALL: Unremarkable IMPRESSION: Short segment of large bowel wall thickening suggestive of colitis involving the hepatic flexure. No organizing fluid collection or pneumoperitoneum. There is no extension to the anus. [facility], , 04/01/2024 4:26 PM
[2024-04-01] MEDS: BALSALAZIDE DISODIUM 750 MG CAPSULE PO SCH (17:52)
[2024-04-02 08:17] VITALS: TEMP 97.6
--- NOTE | 2024-04-02 08:54 | P.PN ---
Subjective Progress Note Date: 04/02/24 This is a 39-year-old male with a history of ulcerative colitis who presented to the emergency department with complaints of diarrhea and blood in his stool. He has been seen and evaluated by GI and surgeon. CT of the abdomen shows colitis. He is maintained on IV steroids. Patient seen this morning sitting up in bed eating breakfast. He reports he is feeling a lot better. Vitals are stable. Objective - Vital Signs Vital signs: Vital Signs Temp 97.6 F 04/02/24 07:23 Pulse 48 L 04/02/24 07:23 Resp 18 04/02/24 07:23 BP 114/62 04/02/24 07:23 Pulse Ox 98 04/02/24 07:23 FiO2 Intake & Output 04/01/24 04/02/24 04/02/24 18:59 06:59 18:59 Other: Voiding Method Toilet # Voids 2 1 - Constitutional General appearance: Present: cooperative, no acute distress - EENT Eyes: Present: PERRLA - Neck Neck: Present: normal ROM. Absent: lymphadenopathy, rigidity - Respiratory Respiratory: bilateral: CTA - Cardiovascular Rhythm: regular Heart sounds: normal: S1, S2 - Gastrointestinal General gastrointestinal: Present: soft. Absent: tenderness - Integumentary Integumentary: Present: normal, normal turgor - Psychiatric Psychiatric: Present: A&O x's 3, appropriate affect, intact judgment & insight - Labs CBC & Chem 7: 04/01/24 05:06 04/01/24 05:06 Assessment and Plan (1) Diarrhea Current Visit: Yes Status: Acute Code(s): R19.7 - DIARRHEA, UNSPECIFIED SNOMED Code(s): 04463889 (2) Hypertension Current Visit: Yes Status: Acute Code(s): I10 - ESSENTIAL (PRIMARY) HYPERT ENSION SNOMED Code(s): 98673947 (3) Ulcerative colitis Current Visit: No Status: Acute Code(s): K51.90 - ULCERATIVE COLITIS, UNSPECIFIED, WITHOUT COMPLICATIONS SNOMED Code(s): 78334678 Plan: Appreciate senior staff consultant's recommendations. Anticipate discharge when cleared by consultants and patient's symptoms have improved. Patient seen and evaluated by nurse practitioner, physician in agreement with plan.
--- NOTE | 2024-04-02 10:55 | P.DS ---
Providers Date of admission: 04/01/24 12:30 Attending physician: Michele Wharton Consults: 03/31/24 09:58 Consult Physician Routine Consulting Provider: Jing Hopson Consult Reason/Comments: colitis Do you want consulting provider notified?: Yes Consult Physician Routine Consulting Provider: Brittaney Ford Consult Reason/Comments: colitis Do you want consulting provider notified?: Yes Primary care physician: Michele Wharton - Discharge Diagnosis(es) (1) Hypertension Current Visit: Yes Status: Acute (2) Diarrhea Current Visit: Yes Status: Acute (3) Ulcerative colitis Current Visit: No Status: Acute Hospital Course: Patient is admitted essentially for recurrent colitis. The patient was placed on appropriate steroid therapy and started stabilizing. GI was consulted as was surgery and the patient was medications were changed as above. The patient will be discharged in stable condition and follow-up with me in about a week. Patient Condition at Discharge: Stable Plan - Discharge Summary Discharge Rx Participant: No New Discharge Prescriptions: New RX: predniSONE 0 mg PO DIRECTED #126 tab RX: Balsalazide Disodium 2,250 mg PO TID #270 capsule Continue RX: Bisoprolol-Hctz 5-6.25 mg [Ziac 5-6.25 MG] 1 tab PO DAILY RX: ALPRAZolam [Xanax] 0.5 mg PO BID RX: Sertraline [Zoloft] 50 mg PO DAILY Discontinued RX: metroNIDAZOLE [Flagyl] 500 mg PO TID #30 tab Discharge Medication List RX: ALPRAZolam [Xanax] 0.5 mg PO BID 07/02/23 [History] RX: Bisoprolol-Hctz 5-6.25 mg [Ziac 5-6.25 MG] 1 tab PO DAILY 07/02/23 [History] RX: Sertraline [Zoloft] 50 mg PO DAILY 03/31/24 [History] RX: Balsalazide Disodium 2,250 mg PO TID #270 capsule 04/02/24 [Rx] RX: predniSONE 0 mg PO DIRECTED #126 tab 04/02/24 [Rx] Follow up Appointment(s)/Referral(s): Michele Wharton MD [Primary Care Provider] - 1-2 days Brittaney Ford MD [STAFF PHYSICIAN] - 2 Weeks
--- NOTE | 2024-04-02 11:58 | P.PN ---
Subjective Progress Note Date: 04/02/24 Principal diagnosis: Ulcerative colitis This is a pleasant 39-year-old male with a history of ulcerative colitis who has followed in the past with gastroenterology but has not been seen there since 2018 2019. At that time patient had been on Lialda and Asocol however he had stopped taking those medications and stated they did not work for him and has not been seen by GI since. His last colonoscopy done with Dr. Hopson in 07/04/2023 for GI bleed. At that time he had a EGD and colonoscopy. EGD with reported findings of gastroesophageal reflux disease and gastritis. Biopsies for chronic esophagitis. And colonoscopy with findings of proctitis and biopsy showed chronic active colitis in the sigmoid colon. He states he recently has seen Dr. Hopson and she put him on Flagyl which has made his diarrhea and abdominal pain worse. States he is so dehydrated from multiple loose bowel movements. Reports that he has had bloody bowel movements for the last 1 year duration. Lost 30 pounds in the last 6 months duration. His average bowel movements are 7 a day with 2-3 bloody ones in the morning. No nausea or vomiting. Labs are unremarkable. No imaging ordered. 04/01/2024 Patient seen and examined today as a follow-up. States abdominal cramping still present but better. Still having diarrhea with some blood maybe a little bit less. States that he feels hungry. No nausea or vomiting. He is afebrile. CRP and sed rate both elevated. Sed rate 41 CRP 1.1. Stool C. difficile negative. 04/02/2024 Patient seen and examined today as a follow-up. He states abdominal pain is improved. He is tolerating a regular diet. States diarrhea is improving as we ll as amount of blood in stool. He has been afebrile. He had a CT of the abdomen pelvis that showed short segment of thickening in the large bowel consistent with colitis. No concerns for abscess. Objective - Vital Signs Vital signs: Vital Signs Temp 97.6 F 04/02/24 07:23 Pulse 48 L 04/02/24 07:23 Resp 18 04/02/24 07:23 BP 114/62 04/02/24 07:23 Pulse Ox 98 04/02/24 07:23 FiO2 Intake & Output 04/01/24 04/02/24 04/02/24 18:59 06:59 18:59 Other: Voiding Method Toilet # Voids 2 1 - Exam General appearance: The patient is alert, oriented, appears in no acute distress. HET: Head is normocephalic and atraumatic. Conjunctiva pink. Sclera anicteric. Neck: Supple without lymphadenopathy. Abdomen: Soft, nontender, nondistended with bowel sounds. No guarding or rigidity. Extremities: Normal skin color and turgor. No pedal edema Skin: No rashes, no jaundice Neurological: No focal deficits. Alert and oriented. - Labs CBC & Chem 7: 04/01/24 05:06 04/01/24 05:06 Assessment and Plan (1) Ulcerative colitis Narrative/Plan: 39-year-old male with history of ulcerative colitis who has not followed with gastroenterology and has not been on any maintenance medications in at least 4 to 5 years. Last colonoscopy with reported findings of proctitis and ulcerative colitis with sigmoid colon biopsy reporting chronic active colitis. Recently seen by general surgery and started on Flagyl which made the diarrhea worse. Likely patient has a flare of ulcerative colitis. Will obtain stool sample for C. difficile, get CRP and sed rate. Do not recommend antibiotics at this time. No plans on colonoscopy at this time as patient had in June of this year. Transition from Solu-Medrol to prednisone 40 mg daily taper dose by 5 mg a week. Will continue with balsalazide. Patient symptoms improving. Can clear for discharge. Current Visit: No Status: Acute Code(s): K51.90 - ULCERATIVE COLITIS, UNSPECIFIED, WITHOUT COMPLICATIONS SNOMED Code(s): 45763106 (2) Diarrhea Current Visit: Yes Status: Acute Code(s): R19.7 - DIARRHEA, UNSPECIFIED SNOMED Code(s): 33342504 Plan: 1. Continue symptomatic and supportive care 2. Advance to low-fat low fiber diet 3. Will continue with prednisone 40 mg daily, taper dose sent to pharmacy 4. Pain medication as needed 5. Continue balsalazide, prescription sent to pharmacy 6. No plans on endoscopic evaluation at this time 7. Recommend outpatient follow-up with gastroenterology for ulcerative colitis Thank you for this consultation, patient is cleared by gastroenterology for discharge. Dr. Laureen Ford I agree with the dictator's note, documented as a scribe by Letty Ray.
[2024-04-02 13:00] VITALS: BP 122/69; PULSE 49; RESP 16
--- NOTE | 2024-04-02 13:56 | P.PN ---
Subjective Progress Note Date: 04/02/24 SURGICAL PROGRESS NOTE CHIEF COMPLAINT: Ulcerative colitis HISTORY OF PRESENT ILLNESS: Patient reports abdominal pain is improved. Bowel movements are decreasing. The amount of blood is also decreasing. He is tolerating regular diet. GI service has cleared him for discharge. CT scan abdomen reports short segment of large bowel wall thickening suggestive of colitis involving the hepatic flexure. No organizing fluid collection or pneumoperitoneum. There is no extension to the anus. Afebrile. PHYSICAL EXAM: VITAL SIGNS: Reviewed. GENERAL: Well-developed in no acute distress. HEENT: No sclera icterus. Extraocular movements grossly intact. Moist buccal mucosa. Head is atraumatic, normocephalic. ABDOMEN: Soft. Nondistended. NEUROLOGIC: Alert and oriented. Cranial nerves II through XII grossly intact. ASSESSMENT: 1. Ulcerative colitis exacerbation 2. GI bleed due to ulcerative colitis PLAN: -Patient can be discharged from surgical standpoint -Steroid management per GI service -Continue GI management of ulcerative colitis. -Recommend GI follow-up outpatient Physician Preschool Assistant Teacher note has been reviewed by physician. Signing provider agrees with the documented findings, assessment, and plan of care. Objective - Vital Signs Vital signs: Vital Signs Temp 97.6 F 04/02/24 12:08 Pulse 49 L 04/02/24 12:08 Resp 16 04/02/24 12:08 BP 122/69 04/02/24 12:08 Pulse Ox 98 04/02/24 12:08 FiO2 Intake & Output 04/01/24 04/02/24 04/02/24 18:59 06:59 18:59 Other: Voiding Method Toilet Toilet # Voids 2 1 - Labs CBC & Chem 7: 04/01/24 05:06 04/01/24 05:06
== END 2024-04-02 14:20 | disposition home or self-care (01) | DRG 387 ==
LOC: EC 08:26 → 5NMEDONC 10:00 → OBSVTOIN 04-01 12:30
PROVIDERS: ADMIT Family Medicine; ATTEND Family Medicine
DX: K51.911 Ulcerative colitis, unspecified with rectal bleeding (principal); E78.5 Hyperlipidemia, unspecified; E86.0 Dehydration; F41.9 Anxiety disorder, unspecified; I10 Essential (primary) hypertension; K21.9 Gastro-esophageal reflux disease without esophagitis; K29.70 Gastritis, unspecified, without bleeding; Z79.52 Long term (current) use of systemic steroids; Z79.899 Other long term (current) drug therapy; Z83.3 Family history of diabetes mellitus; Z87.891 Personal history of nicotine dependence; Z91.030 Bee allergy status; Z91.013 Allergy to seafood; Z90.49 Acquired absence of other specified parts of digestive tract
CPT/HCPCS: 36415; 74177; 80048; 80053; 82150; 83690; 85025; 85610; 85652; 85730; 86140; 87324; 96361; 96372; 96374; 96375; 99285

== ENCOUNTER 2024-07-29 10:26 | Day surgery (SDC) | payer BC ==
[~2024-07-29 10:26] MED LIST changes: -LIDOCAINE 2% (PF) 20 MG/ML 5 ML VIAL ONE; -PROPOFOL 10 MG/ML 20 ML VIAL IV ONE; -fentaNYL (PF) 50 MCG/ML 2 ML AMP ONE
[2024-07-29] MEDS: IV FLUID CONTINUATION 1,000 ML IV ONE (11:28)
[2024-07-29 11:30] VITALS: TEMP 97.2
[2024-07-29] MEDS: LACTATED RINGERS 1,000 ML IV SCH (11:36)
[2024-07-29] MEDS ORDERED: PROPOFOL 10 MG/ML 20 ML VIAL IV ONE (12:35)
--- NOTE | 2024-07-29 12:53 | P.PCN ---
Date of Procedure: 07/29/24 Procedure(s) Performed: BRIEF HISTORY: Patient is a 39-year-old pleasant white male scheduled for an elective colonoscopy as a part of screening for history of ulcerative colitis. He was diagnosed with ulcerative colitis in 2008. For the last 3 weeks has been having 10-12 bowel movements daily with some blood and mucus in the stool. He is scheduled for a colonoscopy to evaluate further. PROCEDURE PERFORMED: Colonoscopy with biopsy. PREOPERATIVE DIAGNOSIS: Screening for history of ulcerative colitis. IV sedation per Anesthesia. PROCEDURE: After informed consent was obtained, the patient, was brought into the endoscopy unit. IV sedation was administered by Anesthesia under continuous monitoring. Digital rectal examination was normal. Initially the Olympus CF-160 flexible video colonoscope was then inserted in the rectum, gradually advanced into the cecum without any difficulty. Careful examination was performed as the scope was gradually being withdrawn. Ileocecal valve and the appendiceal orifice were visualized and appeared normal. Prep was excellent. Mucosa of the cecum, ascending colon, transverse colon, descending colon, appeared normal. Mucosa of the sigmoid colon, and rectum had moderate to severe colitis with mucosal erythema, friability, spontaneous oozing and exudates up to 40 cm from the anal verge and multiple biopsies were done from this area.. Retroflexion was performed in the rectum and no lesions were seen. The patient tolerated the procedure well. IMPRESSION: Moderate to severe active colitis involving the rectum and sigmoid colon up to 40 cm from anal verge with mucosal erythema, friability, granularity and spontaneous bleeding and exudates status post multiple biopsies The rest of the colon appeared normal RECOMMENDATIONS: Findings of this examination were discussed with the patient as well as his family. He was advised to follow-up with the biopsy results. He will be seen in the office in the next week. Will start him on prednisone 40 mg daily and advised to taper it by 5 mg every 2 weeks..
[2024-07-29 13:22] VITALS: BP 142/87; PULSE 82; RESP 14
== END 2024-07-29 13:57 | disposition home or self-care (01) ==
LOC: ORWHC2ENDO 10:26
PROVIDERS: ATTEND Internal Medicine Gastroenterology
DX: Z12.11 Encounter for screening for malignant neoplasm of colon (principal); K51.90 Ulcerative colitis, unspecified, without complications; I10 Essential (primary) hypertension; K21.9 Gastro-esophageal reflux disease without esophagitis; F32.A Depression, unspecified; F41.9 Anxiety disorder, unspecified; Z79.899 Other long term (current) drug therapy; Z91.030 Bee allergy status; Z91.013 Allergy to seafood
CPT/HCPCS: 88305; 45380; J2704

== ENCOUNTER 2024-12-09 06:55 | Emergency (ER) | payer BC ==
--- NOTE | 2024-12-09 07:27 | ED ---
General Adult HPI - General Chief complaint: Abdominal Pain Stated complaint: Stomach pain Time Seen by Provider: 12/09/24 07:04 Source: patient, RN notes reviewed, old records reviewed Mode of arrival: ambulatory Limitations: no limitations - History of Present Illness Initial comments: 39-year-old male history of ulcerative colitis presenting with generalized abdominal pain and cramping. Patient states he has had 30 bowel movements in the past 24 hours some intermixed with blood. Patient is on Stelara and states that he had a recent medication change by his pile driving technician. Patient states that the medication he takes at home is not helping. Pain is similar to previous ulcerative colitis exacerbations. - Related Data Home Medications Medication Instructions Recorded Confirmed ALPRAZolam [Xanax] 0.5 mg PO BID PRN 07/02/23 07/29/24 Bisoprolol-Hctz 5-6.25 mg [Ziac 1 tab PO Q48H 07/02/23 07/29/24 5-6.25 MG] traMADol HCL 50 mg PO BID PRN 07/27/24 07/29/24 Previous Rx's Medication Instructions Recorded Balsalazide Disodium 2,250 mg PO TID #270 capsule 04/02/24 predniSONE 0 mg PO DIRECTED #126 tab 12/09/24 Allergies Allergy/AdvReac Type Severity Reaction Status Date / Time shellfish derived Allergy Anaphylaxis Verified 12/09/24 06:59 venom-honey bee Allergy Rash/Hives Verified 12/09/24 06:59 [bee venom (honey bee)] Review of Systems ROS Statement: Those systems with pertinent positive or pertinent negative responses have been documented in the HPI. ROS Other: All systems not noted in ROS Statement are negative. Past Medical History Past Medical History: GERD/Reflux, GI Bleed, Hypertension Additional Past Medical History / Comment(s): proctitis, ulceratative colitis History of Any Multi-Drug Resistant Organisms: None Reported Past Surgical History: Cholecystectomy Additional Past Surgical History / Comment(s): EGD/colonoscopy Past Anesthesia/Blood Transfusion Reactions: No Reported Reaction Past Psychological History: Anxiety, Depression Smoking Status: Former smoker Past Alcohol Use History: None Reported Past Drug Use History: None Reported - Past Family History Brother(s) Family Medical History: Diabetes Mellitus General Exam Limitations: no limitations General appearance: alert, in no apparent distress Head exam: Present: atraumatic, normocephalic Eye exam: Present: normal appearance, PERRL ENT exam: Present: mucous membranes dry Neck exam: Present: normal inspection. Absent: tenderness Respiratory exam: Present: normal lung sounds bilaterally. Absent: respiratory distress, wheezes Cardiovascular Exam: Present: regular rate, normal rhythm GI/Abdominal exam: Present: soft, tenderness, guarding. Absent: distended Neurological exam: Present: alert, oriented X3 Psychiatric exam: Present: normal affect, normal mood Skin exam: Present: warm, dry, intact. Absent: cyanosis, diaphoretic Course Vital Signs 12/09/24 12/09/24 12/09/24 06:56 07:28 09:08 Temperature 97.6 F 97.8 F Pulse Rate 73 63 Respiratory 16 18 16 Rate Blood Pressure 153/85 132/78 O2 Sat by Pulse 99 98 Oximetry - Reevaluation(s) Reevaluation #1: 12/09/24 10:10 Patient reevaluated on multiple occasions, symptoms completely resolved feeling well. Medical Decision Making - Medical Decision Making Was pt. sent in by a medical professional or institution (Dr. PA, WELT MAKER, urgent care, hospital, or prison...) When possible be specific @ -No Did you speak to anyone other than the patient for history (EMS, parent, family, police, friend...)? What history was obtained from this source @ -No Did you review nursing and triage notes (agree or disagree)? Why? @ -I reviewed and agree with nursing and triage notes Were old charts reviewed (outside hosp., previous admission, EMS record, old EKG, old radiological studies, urgent care reports/EKG's, prison records)? Report findings @ -No old charts were reviewed Differential Abdominal Pain Men: Appendicitis, cholecystitis, diverticulosis, ischemic bowel, pancreatitis, hepatitis, UTI, gastroenteritis, AAA, incarcerated hernia, bowel obstruction, constipation, inflammatory bowel, hepatitis, peptic ulcer disease, splenic infarction, perforated viscus, testicular torsion, this is not meant to be an all-inclusive list EKG interpreted by me (3pts min.). @ -As above X-rays interpreted by me (1pt min.). @ -None done CT interpreted by me (1pt min.). @ -None done U/S interpreted by me (1pt. min.). @ -None done What testing was considered but not performed or refused? (CT, X-rays, U/S, labs)? Why? @ -None What meds were considered but not given or refused? Why? @ -None Did you discuss the management of the patient with other professionals (professionals i.e. , PA, WELT MAKER, lab, RT, psych nurse, delinquency prevention social worker, track coach, teacher, investigation officer, watch caser)? Give summary @ -No Was smoking cessation discussed for >3mins.? @ -No Was critical care preformed (if so, how long)? @ -No Were there social determinants of health that impacted care today? How? (H omelessness, low income, unemployed, alcoholism, drug addiction, transportation, low edu. Level, literacy, decrease access to med. care, senior living, rehab)? @ -No Was there de-escalation of care discussed even if they declined (Discuss DNR or withdrawal of care, Hospice)? DNR status @ -No What co-morbidities impacted this encounter? (DM, HTN, Smoking, COPD, CAD, Cancer, CVA, ARF, Chemo, Hep., AIDS, mental health diagnosis, sleep apnea, morbid obesity)? @Ulcerative colitis Was patient admitted / discharged? Hospital course, mention meds given and route, prescriptions, significant lab abnormalities, going to OR and other pertinent info. @ -39-year-old male with abdominal pain, diarrhea, history of ulcerative colitis. Patient evaluated, vital signs stable. He has generalized abdominal pain and tenderness. Given pain medication and steroids in the emergency department. Laboratory testing is unremarkable including CBC, CMP, lactic acid, urinalysis. Patient's symptoms completely resolved in the emergency department. I did discuss case with Letty griffin for Dr. Ford, and given the improvement in symptoms at this time recommending oral steroids and close outpatient follow- up. The patient given return parameters. Stable for discharge. Undiagnosed new problem with uncertain prognosis? @ -No Drug Therapy requiring intensive monitoring for toxicity (Heparin, Nitro, Insulin, Cardizem)? @ -No Were any procedures done? @ -No Diagnosis/symptom? @ -Ulcerative colitis, abdominal pain Acute, or Chronic, or Acute on Chronic? @ -Acute on chronic Uncomplicated (without systemic symptoms) or Complicated (systemic symptoms)? @ -Default Side effects of treatment? @ -No Exacerbation, Progression, or Severe Exacerbation? @ -No Poses a threat to life or bodily function? How? (Chest pain, [place], [place], pneumonia, PE, COPD, DKA, ARF, appy, cholecystitis, CVA, Diverticulitis, Homicidal, Suicidal, threat to staff... and all critical care pts) @ -No - Lab Data Result diagrams: 12/09/24 07:40 12/09/24 07:40 Lab Results 12/09/24 12/09/24 12/09/24 Range/Units 00:43 07:40 07:40 WBC 10.90 H (4.50-10.00) 10*3/uL RBC 4.97 (4.40-5.60) 10*6/uL Hgb 14.5 (13.0-17.0) g/dL Hct 42.9 (39.6-50.0) % MCV 86.3 (80.0-97.0) fL MCH 29.2 (27.0-32.0) pg MCHC 33.8 (32.0-37.0) g/dL Plt Count 204 (140-440) 10*3/uL MPV 9.4 L (9.5-12.2) fL Immature Gran % (Auto) 0.2 % Neutrophils % 74.8 % Lymphocytes % 10.1 % Monocytes % 8.8 % Eosinophils % 5.5 % Basophils % 0.6 % Immature Gran # 0.02 (0.00-0.04) 10*3/uL Neutrophils # 8.16 H (1.80-7.70) 10*3/uL Lymphocytes # 1.10 (0.90-5.00) 10*3/uL Monocytes # 0.96 (0.20-1.00) 10*3/uL Eosinophils # 0.60 H (0.04-0.35) 10*3/uL Basophils # 0.06 (0.00-0.10) 10*3/uL PT 11.7 (10.0-12.5) sec INR 1.1 (<1.2) APTT 27.4 (22.0-30.0) sec Sodium (137-145) mmol/L Potassium (3.5-5.1) mmol/L Chloride (98-107) mmol/L Carbon Dioxide (22-30) mmol/L Anion Gap mmol/L BUN (9-20) mg/dL Creatinine (0.66-1.25) mg/dL Est GFR (CKD-EPI)AfAm (>60 ml/min/1.73 sqM) Est GFR (CKD-EPI)NonAf (>60 ml/min/1.73 sqM) Glucose (74-99) mg/dL Plasma Lactic Acid Robbie (0.7-2.0) mmol/L Calcium (8.4-10.2) mg/dL Total Bilirubin (0.2-1.3) mg/dL AST (17-59) U/L ALT (4-49) U/L Alkaline Phosphatase (38-126) U/L Total Protein (6.3-8.2) g/dL Albumin (3.5-5.0) g/dL Lipase (23-300) U/L Urine Color Colorless Urine Appearance Clear (Clear) Urine pH 6.5 (5.0-8.0) Ur Specific Nemo 1.010 (1.001-1.035) Urine Protein Negative (Negative) Urine Glucose (UA) Negative (Negative) Urine Ketones Negative (Negative) Urine Blood Negative (Negative) Urine Nitrite Negative (Negative) Urine Bilirubin Negative (Negative) Urine Urobilinogen <2.0 (<2.0) mg/dL Ur Leukocyte Esterase Negative (Negative) 12/09/24 12/09/24 Range/Units 07:40 07:40 WBC (4.50-10.00) 10*3/uL RBC (4.40-5.60) 10*6/uL Hgb (13.0-17.0) g/dL Hct (39.6-50.0) % MCV (80.0-97.0) fL MCH (27.0-32.0) pg MCHC (32.0-37.0) g/dL Plt Count (140-440) 10*3/uL MPV (9.5-12.2) fL Immature Gran % (Auto) % Neutrophils % % Lymphocytes % % Monocytes % % Eosinophils % % Basophils % % Immature Gran # (0.00-0.04) 10*3/uL Neutrophils # (1.80-7.70) 10*3/uL Lymphocytes # (0.90-5.00) 10*3/uL Monocytes # (0.20-1.00) 10*3/uL Eosinophils # (0.04-0.35) 10*3/uL Basophils # (0.00-0.10) 10*3/uL PT (10.0-12.5) sec INR (<1.2) APTT (22.0-30.0) sec Sodium 141 (137-145) mmol/L Potassium 3.8 (3.5-5.1) mmol/L Chloride 106 (98-107) mmol/L Carbon Dioxide 25 (22-30) mmol/L Anion Gap 10 mmol/L BUN 9 (9-20) mg/dL Creatinine 0.82 (0.66-1.25) mg/dL Est GFR (CKD-EPI)AfAm >90 (>60 ml/min/1.73 sqM) Est GFR (CKD-EPI)NonAf >90 (>60 ml/min/1.73 sqM) Glucose 99 (74-99) mg/dL Plasma Lactic Acid Robbie 0.8 (0.7-2.0) mmol/L Calcium 9.4 (8.4-10.2) mg/dL Total Bilirubin 0.7 (0.2-1.3) mg/dL AST 22 (17-59) U/L ALT 15 (4-49) U/L Alkaline Phosphatase 93 (38-126) U/L Total Protein 7.4 (6.3-8.2) g/dL Albumin 4.2 (3.5-5.0) g/dL Lipase 137 (23-300) U/L Urine Color Urine Appearance (Clear) Urine pH (5.0-8.0) Ur Specific Nemo (1.001-1.035) Urine Protein (Negative) Urine Glucose (UA) (Negative) Urine Ketones (Negative) Urine Blood (Negative) Urine Nitrite (Negative) Urine Bilirubin (Negative) Urine Urobilinogen (<2.0) mg/dL Ur Leukocyte Esterase (Negative) Disposition Clinical Impression: Ulcerative colitis, Abdominal pain Disposition: HOME SELF-CARE Condition: Fair Instructions (If sedation given, give patient instructions): Abdominal Pain (ED) Prescriptions: predniSONE 0 mg PO DIRECTED #126 tab Referrals: Michele Wharton MD [Primary Care Provider] - 1-2 days Brittaney Ford MD [STAFF PHYSICIAN] - 1 Week Time of Disposition: 10:12
[2024-12-09] MEDS: LACTATED RINGERS 1,000 ML IV ONE (07:37)
[2024-12-09] MEDS: ONDANSETRON 4 MG/2 ML VIAL IVP STA (07:37)
[2024-12-09] MEDS: HYDROmorphone 1 MG/ML 1 ML SYRINGE IVP STA (07:38)
[2024-12-09] MEDS: methylPREDNISolone SOD SUCCI 125 MG/2 ML VIAL IV STA (07:39)
[2024-12-09 07:49] LABS: Basophils # (A) 0.06 10*3/uL (0.00-0.10); Basophils % (A) 0.6 %; Eosinophils # (A) 0.60 10*3/uL (0.04-0.35); Eosinophils % (A) 5.5 %; HCT 42.9 % (39.6-50.0); HGB 14.5 g/dL (13.0-17.0); Lymphocytes # (A) 1.10 10*3/uL (0.90-5.00); Lymphocytes % (A) 10.1 %; MCH 29.2 pg (27.0-32.0); MCHC 33.8 g/dL (32.0-37.0); MCV 86.3 fL (80.0-97.0); Monocytes # (A) 0.96 10*3/uL (0.20-1.00); Monocytes % (A) 8.8 %; Neutrophils # (A) 8.16 10*3/uL (1.80-7.70); Neutrophils % (A) 74.8 %; Platelet Count 204 10*3/uL (140-440); RBC 4.97 10*6/uL (4.40-5.60); RDW 13.1 % (11.5-14.5); WBC 10.90 10*3/uL (4.50-10.00)
[2024-12-09 08:14] LABS: ALT 15 U/L (4-49); AST 22 U/L (17-59); African American GFR (CKD) >90 (>60 ml/min/1.73 sqM); Albumin 4.2 g/dL (3.5-5.0); Alkaline Phosphatase 93 U/L (38-126); Anion Gap 10 mmol/L; Blood Urea Nitrogen 9 mg/dL (9-20); Calcium 9.4 mg/dL (8.4-10.2); Carbon Dioxide 25 mmol/L (22-30); Chloride 106 mmol/L (98-107); Glucose 99 mg/dL (74-99); Lipase 137 U/L (23-300); Non-African American GFR(CKD) >90 (>60 ml/min/1.73 sqM); Potassium 3.8 mmol/L (3.5-5.1); Sodium 141 mmol/L (137-145); Total Protein 7.4 g/dL (6.3-8.2)
[2024-12-09 08:52] LABS: Bilirubin,Urine Negative (Negative); Blood,Urine Negative (Negative); Color,Urine Colorless; Glucose,Urine (UA) Negative (Negative); Ketones,Urine Negative (Negative); Leukocyte Esterase,Urine Negative (Negative); Nitrite,Urine Negative (Negative); PH, Urine 6.5 (5.0-8.0); Protein,Urine Negative (Negative); Specific Gravity,Urine 1.010 (1.001-1.035); Urobilinogen,Urine <2.0 mg/dL (<2.0)
[2024-12-09 09:09] VITALS: RESP 16
[2024-12-09 09:18] LABS: INR 1.1 (<1.2); Partial Thromboplastin Time 27.4 sec (22.0-30.0); Prothrombin Time 11.7 sec (10.0-12.5)
[2024-12-09 10:25] VITALS: BP 126/68; PULSE 58; TEMP 97.5
== END 2024-12-09 10:25 | disposition home or self-care (01) ==
LOC: EC 06:55
DX: K51.90 Ulcerative colitis, unspecified, without complications (principal); Z91.030 Bee allergy status; Z91.013 Allergy to seafood; Z87.891 Personal history of nicotine dependence
CPT/HCPCS: 36415; 80053; 83605; 83690; 85025; 85610; 85730; 81003; 99284; 96374; 96375 ×2; 96361; J2405; J1171; J2919

== ENCOUNTER → 2024-12-23 | Outpatient (CLI) | payer BC ==
[2024-12-23 15:25] LABS: ALT 13 U/L (10-49); AST 16 U/L (14-35); Albumin 4.1 g/dL (3.8-4.9); Albumin/Globulin Ratio 1.52 Ratio (1.60-3.17); Alkaline Phosphatase 71 U/L (41-126); Anion Gap 9.40 mmol/L (4.00-12.00); BUN/Creat Ratio 12.75 Ratio (12.00-20.00); Blood Urea Nitrogen 10.2 mg/dL (9.0-27.0); Calcium 9.0 mg/dL (8.7-10.3); Carbon Dioxide 24.6 mmol/L (21.6-31.8); Chloride 105 mmol/L (96-109); Globulin 2.7 g/dL (1.6-3.3); Glucose 103 mg/dL (70-110); Potassium 3.9 mmol/L (3.5-5.5); Sodium 139 mmol/L (135-145); Total Protein 6.8 g/dL (6.2-8.2)
[2024-12-23 15:44] LABS: Basophils # (A) 0.03 X 10*3/uL (0.00-0.10); Basophils % (A) 0.2 %; Eosinophils # (A) 0.01 X 10*3/uL (0.04-0.35); Eosinophils % (A) 0.1 %; HCT 44.1 % (39.6-50.0); HGB 14.3 g/dL (13.0-17.0); Immature Grans, Automated 0.50 %; Lymphocytes # (A) 0.76 X 10*3/uL (0.90-5.00); Lymphocytes % (A) 6.0 %; MCH 28.8 pg (27.0-32.0); MCHC 32.4 g/dL (32.0-37.0); MCV 88.9 FL (80.0-97.0); Monocytes # (A) 0.64 X 10*3/uL (0.20-1.00); Monocytes % (A) 5.1 %; NRBC Per 100 WBC 0 X 10*3/uL (0.00-0.01); Neutrophils # (A) 11.14 X 10*3/uL (1.80-7.70); Neutrophils % (A) 88.1 %; Platelet Count 217 X 10*3/uL (140-440); RBC 4.96 X 10*6/uL (4.40-5.60); RDW 13.5 % (11.5-14.5); WBC 12.64 X 10*3/uL (4.50-10.00)
== END | disposition home or self-care (01) ==
LOC: LABWHC1 09:35
PROVIDERS: ATTEND Internal Medicine Gastroenterology
DX: K51.90 Ulcerative colitis, unspecified, without complications (principal)
CPT/HCPCS: 36415; 80053; 83993; 85025